=== PATIENT | male | born 1950 | race Caucasian/White ===

== ENCOUNTER 2020-09-25 21:54 | Emergency (ER) | payer MEDICARE, MEDICAID ==
[~2020-09-25] VITALS: Ht 172.7 cm; Wt 61.2 kg
[2020-09-26] MEDS ORDERED: ACETAMINOPHEN 325 MG TAB PO ONE (03:30)
[2020-09-26] MEDS ORDERED: cefTRIAXone SOD 1,000 MG VL IM ONE (03:30)
[2020-09-26 03:42] VITALS: BP 128/68
== END 2020-09-26 03:28 | disposition home or self-care (01) ==
LOC: ER 21:56
DX: L84 Corns and callosities (principal); R46.0 Very low level of personal hygiene
CPT/HCPCS: 73130; 96372; 99283; J0696

== ENCOUNTER 2020-09-26 12:27 | Emergency (ER) | payer MEDICARE, MEDICAID ==
[~2020-09-26] VITALS: Ht 172.7 cm; Wt 61.2 kg
[2020-09-26 12:27] VITALS: BP 117/69
== END 2020-09-26 13:51 | disposition home or self-care (01) ==
LOC: ER 12:27
DX: Z48.00 Encounter for change or removal of nonsurgical wound dressing (principal); L84 Corns and callosities